=== PATIENT | female | born 1955 | race Caucasian/White ===

== ENCOUNTER 2017-06-21 15:46 | Emergency (ER) | payer BC ==
[~2017-06-21] VITALS: Ht 167.6 cm; Wt 77.1 kg
--- OUTSIDE RECORDS SUMMARY | ~2017-06-21 | XMS | Encounter Summary ---
Demographics + + + | Address | [address] | | | [place] [address] | + + + | Home Phone | | + + + | Preferred Language | Unknown | + + + | Marital Status | | + + + | Restorationism Affiliation | Unknown | + + + | Race | Unknown | + + + | Ethnic Group | Unknown | + + + Author + + + | Author | [facility] | + + + | Organization | [facility] | + + + | Address | Unknown | + + + | Phone | Unavailable | + + + Support + + + + + | Name | Relationship | Address | Phone | + + + + + | Message,Detailed | ECON | Unknown | | + + + + + | Luis,Kang | ECON | [address] | | | | | [place] | | | | | [address] | | + + + + + Care Team Providers + +------+ + | Care Cloth Shrinking Machine Operator Name | Role | Phone | + +------+ + | Renny Mclain DO | PCP | | + +------+ + Reason for Visit + + + | Reason | Comments | + + + | Medication Refill | | + + + Encounter Details +--------+--------+ + + + | Date | Type | Department | Care Team | Description | +--------+--------+ + + + | 06/10/ | Refill | [facility] | Henny Beckwith, | Rheumatoid arthritis | | 2018 | | 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 | | | | [address] | | with negative | | | | [facility] [address] | | rheumatoid factor | | | | [phone] | | (HCC) | +--------+--------+ + + + Social History + +-------+ +--------+------+ | Tobacco Use | Types | Packs/Day | Years | Date | | | | | Used | | + +-------+ +--------+------+ | Never Smoker | | | | | + +-------+ +--------+------+ + +---+---+---+ | Smokeless Tobacco: | | | | | Never Used | | | | + +---+---+---+ + + +---------+ + | Alcohol Use | Drinks/We | oz/Week | Comments | | | ek | | | + + +---------+ + | Yes | 1 | 0.6 | | | | Glasses | | | | | of wine | | | + + +---------+ + + + + | Sex Assigned at | Date Recorded | | | | + + + | Not on file | | + + + as of this encounter Plan of Treatment +--------+---------+ + + + | Date | Type | Specialty | Care Team | Description | +--------+---------+ + + + | 07/03/ | Office | Rheumatology | Gertrude, | | | 2018 | Visit | | [address] | | | | | | [facility] | | | | | | [place] [address] | | | | | | [phone] | | | | | | | | +--------+---------+ + + + as of this encounter Visit Diagnoses + + | Diagnosis | + + | Rheumatoid arthritis of multiple sites with negative rheumatoid factor (HCC) | + +"
--- OUTSIDE RECORDS SUMMARY | ~2017-06-21 | XMS | Encounter Summary ---
Demographics + + + | Address | [address] | | | [place] [address] | + + + | Home Phone | | + + + | Preferred Language | Unknown | + + + | Marital Status | | + + + | Jewish Affiliation | Unknown | + + + | Race | Unknown | + + + | Ethnic Group | Unknown | + + + Author + + + | Author | [facility] | + + + | Organization | [facility] | + + + | Address | [...] [place] | | | | | [address] | | + + + + + Care Team Providers + +------+ + | Care Cardiac Care Nurse Name | Role | Phone | + +------+ + | Renny Mclain DO | PCP | | + +------+ + Reason for Visit + + + | Reason | Comments | + + + | Rheumatology visit | | + + + | Rheumatoid Arthritis | Urgent per Triage | + + + Encounter Details +--------+---------+ + + + | Date | Type | Department | Care Team | Description | +--------+---------+ + + + | 04/23/ | Office | [facility] | Gertrude, | Rheumatoid arthritis | | 2018 | Visit | Rheumatology [address] | [place], [facility] [address] | of multiple sites | | | | [facility] | [facility] | with negative | | | | [place] [address] | [place] [address] | rheumatoid factor | | | | [phone] | [phone] | ([facility]) (Primary Dx); | | | | | | Primary | | | | | | osteoarthritis of | | | | | | both hands | +--------+---------+ + + + Social History + +-------+ [...] + + + as of this encounter Last Filed Vital Signs + + + + | Vital Sign | Reading | Time Taken | + + + + | Blood Pressure | 112/68 | 04/23/2017 8:02 AM PST | + + + + | Pulse | 72 | 04/23/2017 8:02 AM PST | + + + + | Temperature | 36.3 C (97.4 F) | 04/23/2017 8:02 AM PST | + + + + | Respiratory Rate | 16 | 04/23/2017 8:02 AM PST | + + + + | Oxygen Saturation | - | - | + + + + | Inhaled Oxygen | - | - | | Concentration | | | + + + + | Weight | 78.7 kg (173 lb 9.6 | 04/23/2017 8:02 AM PST | | | oz) | | + + + + | Height | - | - | + + + + | Body Mass Index | 28.02 | 04/23/2017 8:02 AM PST | + + + + in this encounter Instructions Patient Instructions - Ben Almendarez ARNP - 04/23/2017 8:10 AM Johnna hope that valentine ortiz have experienced exceptional care today and that you found our service to be courteous and helpful. If you have any questions you can send us a message/request using [employer] or call our o heladio at [phone]. To reach [facility] type extension [phone]. If you are unable to reach a nurse during clinic hours, please leave a detailed message. We check our messages often and return calls in a timely manner during clinic hours. Medication refills- please contact your pharmacy first Orders for labs or imaging: Please remember that Ben will only call you if something i s of concern AND needs to be addressed, otherwise results will be discussed at your next of fice visit. You can also look at your results on [employer]. If you are experiencing an emergency, please call 911 Post Injection Instructions: The injection you were given is combination of two medications, one which numbs the skin an d tissues temporarily and another which is an anti-inflammatory which works over the next se veral days to reduce swelling and inflammation. The numbing medication will wear off in the next several hours. When this happens it is not unusual to have pain in the area that was injected for about 2-5 days. If you have pain the following steps may make you more comfortable: 1. Make an ice pack and cover it with a towel. Apply this to the sore area for 10-15 minute s each hour as needed 2. Do not apply heat to the same area for at least two day. 3. If you were given a prescription for medication, take the pills as directed. 4. Regular of extra strength Tylenol can be used for mild pain 5. Avoid activities that stress the sore area. You are encouraged to gently move the arm or leg through its normal range of motion a few times per day to prevent stiffness. 6. If an shelly bandage or support was applied, continue to use it until swelling and pain are gone. After several days, when the anti-inflammatory medication starts to work, you should begin to notice a decrease in your pain and swelling. This process usually continues over the next 4-6 weeks Following any injection there is a slight possibility of developing an infection. If you de velop the following symptoms, contact the office for further instructions. Heat and redness at injection site Increasing pain and swelling Drainage or pus Feverin this encounter Progress Notes Ben Almendarez ARNP - 04/23/2017 8:10 AM PSTAssociated Order(s): ARTHROCENTESIS/IN JECTIONPost-Procedure Diagnose(s): Rheumatoid arthritis of multiple sites with negative rheu matoid factor (HCC); Primary osteoarthritis of both handsArthrocentesis/Injection Date/Time: 04/23/2017 8:10 AM Performed by: BEN ALMENDAREZ Authorized by: BEN ALMENDAREZ Verbal consent was obtained. Written consent was not obtained. Consent was given by patient . Risks, benefits and alternatives were discussed. Patient states understanding of procedur e being performed. Immediately prior to procedure a "time out" was called to verify the correct patient, proce dure, equipment, accounting support specialist and site/side marked as required. Indications Type: Therapeutic injection Location/Joint: Right small, PIP Anesthesia: surface application Gebauer's Pain Ease spray. Procedure Details Preparation: skin prepped with alcohol and skin prepped with Betadine Needle size: 27 G Difficulty: Easy Complications: No Patient tolerated the procedure well with no immediate complications. Post-procedure instructions given to patient. Therapeutic injection was given. Medication administered was Triamcinolone 10(mg). Ben Almendarez ARNP - 04/23/2017 8:10 AM PSTFormatting of this note may be differe nt from the original. Subjective: Patient ID: Barby Luis is a 62 y.o. female. Reason for visit: Rheumatoid Arthritis Here forUrgent visit Rheumatological History Patient was diagnosed in 2011 with RA. Had an initial presentation of sudden onset of PIP p ain and nodules in August. Her hands hurt her in the morning and she had a hard time opening h er fists Serology: Negative RF, Negative anti-CCP and Negative LILLY Pertinent Imagin- H/ xrays- neg. 2014 MRI- L 5th finger- mild edema- neg.erosions HPI Last visit: 01/03/17 Changes in overall health since last visit: no Main Concern: urgent visit for R 5th PIP joint pain and swelling. Symptoms began March. No injury or trauma. This has been an intermittent issue for the last few years. She has had this joint injected about 3 times in the past, and it has been effective for relief. She re quests another injection today. Had similar issues with the L 5th finger and the PIP joint was eventually fused. Location:R 5th finger, PIP Quality: ache Severity: moderate Duration: 1-3 months Timing:intermittent Aggravated by:activity Relieved by:rest Denies infection fever and abdominal pain Current medications: Plaquenil 400mg daily Previous Medications tried and failed:oral prednisone- GI/ ARPAN, MTX - hair loss, sulfasalaz ine- GI The following portions of the patient's history were reviewed and updated as appropriate an d is available elsewhere in the record: allergies, current medications, past family history, past social history, past surgical history and problem list. Past Medical History Diagnosis Date Cataract Depression Osteoarthritis Rheumatoid arthritis(714.0) Possible Review of Systems Constitutional: Negative for fatigue and fever. HENT: Negative for mouth sores and sore throat. Eyes: Negative for pain and redness. Respiratory: Negative for cough and shortness of breath. Cardiovascular: Negative for chest pain. Gastrointestinal: Positive for abdominal pain. Negative for blood in stool. Genitourinary: Negative for dysuria and hematuria. Musculoskeletal: Positive for arthralgias and joint swelling. Skin: Negative for rash. Allergic/Immunologic: Positive for environmental allergies. Neurological: Positive for headaches. Negative for numbness. Psychiatric/Behavioral: The patient is not nervous/anxious. IBen, reviewed the above ROS. Objective: Physical Exam Constitutional: She is oriented to person, place, and time. She appears well-developed and well-nourished. HENT: Head: Normocephalic. Mouth/Throat: Oropharynx is clear and moist. Eyes: Conjunctivae are normal. Pupils are equal, round, and reactive to light. Neck: Normal range of motion. Neck supple. Cardiovascular: Normal rate, regular rhythm and normal heart sounds. Pulmonary/Chest: Effort normal and breath sounds normal. Musculoskeletal: Normal range of motion. Musculoskeletal examination of the RIGHT and LEFT upper extremity, RIGHT and LEFT lower ext remity, spine, ribs ,pelvis ,head and neck was performed Musculoskeletal examination reveals no synovitis with no tenderness,soft tissue swelling or instability in all the joints, except synovitis and tenderness to R 5th PIP joint. All oth er joints are satisfactory Musculoskeletal examination reveals degenerative changes in the hands Neurological: She is alert and oriented to person, place, and time. Skin: Skin is warm, dry and intact. Joint Exam Labs reviewed in Epic 01/03/17 06/07/16 eye exam X-rays R Hand- April 2016 1. Periarticular deossification, suggesting inflammatory arthritis. 2. Mild chondromalacia in some interphalangeal and MCP joints. 3. The remainder of the examination is unremarkable. Reviewed chart notes, labs and imaging form other provider(s) since the last visit. Assessment and Plan: Visit Diagnoses and Associated Orders: Rheumatoid arthritis of multiple sites with negative rheumatoid factor (HCC) R 5th PIP joint pain with swelling. Treatment options discussed, consent given for intra-articular injection of Kenalog Instructed on post injection care and if no improvement in 7-10 days, contact our office. If symptoms persist, consider consultation with hand surgeon or she may consider [facility], as she is hesitant to fuse the R 5th digit. Return to clinic in June Risks and benefits of a treatment plan were explained to patient. Patient will follow up with their primary care physician in regards to non-rheumatological symptoms listed under review of systems. Patient was advised to contact our office if there are any change in their symptoms. . Answers for HPI/ROS submitted by the patient on 04/23/2017 Joint problem FN subscore: : 0.66 Patient overall Assessment: 5 RAPID3 Score: : 9.16 in this encounter Plan of Treatment +--------+---------+ + + + | Date | Type | Specialty | Care Team | Description | +--------+---------+ + + + | 07/03/ | Office | Rheumatology | Gertrude, | | | 2017 | Visit | | [address] | | | | | | [facility] | | | | | | [place] [address] | | | | | | [phone] | | | | | | | | +--------+---------+ + + + as of this encounter Procedures + +--------+ + + + | Procedure Name | Priori | Date/Time | Associated Diagnosis | Comments | | | ty | | | | + +--------+ + + + | ARTHROCENTESIS/INJEC | Routin | 04/23/2017 | Rheumatoid | Results for this | | TION | e | 8:10 AM | arthritis of | procedure are in the | | | | PST | multiple sites with | results section. | | | | | negative rheumatoid | | | | | | factor (HCC) | | | | | | Primary | | | | | | osteoarthritis of | | | | | | both hands | | + +--------+ + + + in this encounter Results Arthrocentesis/Injection (04/23/2017 8:10 AM) + + | Narrative | + + | YOSEPH Novoa 04/23/2017 8:53 AM Arthrocentesis/Injection | | Date/Time: 04/23/2017 8:10 AM Performed by: BEN ALMENDAREZ Authorized by: | | BEN ALMENDAREZ Verbal consent was obtained. Written consent was not | | obtained. Consent was given by patient. Risks, benefits and alternatives were | | discussed. Patient states understanding of procedure being performed. Immediately | | prior to procedure a "time out" was called to verify the correct patient, procedure, | | equipment, accounting support specialist and site/side marked as required. Indications | | Type: Therapeutic injection Location/Joint: Right small, PIP Anesthesia: | | surface application Gebauer's Pain Ease spray. Procedure Details | | Preparation: skin prepped with alcohol and skin prepped with Betadine Needle | | size: 27 G Difficulty: Easy Complications: No Patient tolerated the | | procedure well with no immediate complications. Post-procedure instructions given to | | patient. Therapeutic injection was given. Medication administered was | | Triamcinolone 10(mg). | + + in this encounter Visit Diagnoses + + | Diagnosis | + + | Rheumatoid arthritis of multiple sites with negative rheumatoid factor (HCC) - Primary | + + | Primary osteoarthritis of both hands | + + Administered Medications + +--------+ +-------+------+------+ | Medication Order | MAR | Action | Dose | Rate | Site | | | Action | Date | | | | + +--------+ +-------+------+------+ | triamcinolone acetonide | Given | | 10 mg | | | | (KENALOG-40) injection 10 mg 10 | | 8 08:28 | | | | | mg, Intra-articular, Once, Tue | | PST | | | | | 04/23/17 at 0900, For 1 dose | | | | | | + +--------+ +-------+------+------+ +---+---+ | | | +---+---+ in this encounter
--- OUTSIDE RECORDS SUMMARY | ~2017-06-21 | XMS | Clinical Summary ---
Demographics + + + | Address | [address] [place] [address] | | | [place] [address] | + + + | Home Phone | | + + + | Preferred Language | Unknown | + + + | Marital Status | | + + + | Congregation Affiliation | OTH | + + + | Race | White | + + + | Ethnic Group | Not or | + + + Author + + + | Organization | Unknown | + + + | Address | Unknown | + + + | Phone | Unavailable | + + + Support + + + + + | Name | Relationship | Address | Phone | + + + + + | JARET PINO | ECON | [address] | | | | [place] | | | | | [address] | | + + + + + Care Team Providers + +------+ + | Care Copyist Name | Role | Phone | + +------+ + PP | Unavailable | + +------+ + Source Comments IAN is fully live on both [facility] and [facility] Allergies No Known Allergies Current Medications Not on file Active Problems Not on file Social History + +-------+ +--------+------+ | Tobacco Use | Types | Packs/Day | Years | Date | | | | | Used | | + +-------+ +--------+------+ | Never Assessed | | | | | + +-------+ +--------+------+ + + + | Sex Assigned at | Date Recorded | | | | + + + | Not on file | | + + + Plan of Treatment + + + + + | Health Maintenance | Due Date | Last Done | Comments | + + + + + | INFLUENZA VACCINE | | | | | (FLU SHOT) | 8 | | | + + + + + Results Not on filefrom Last 3 Months"
--- OUTSIDE RECORDS SUMMARY | ~2017-06-21 | XMS | Clinical Summary ---
Demographics + + + | Address | [address] | | | [place] [address] | + + + | Home Phone | | + + + | Preferred Language | Unknown | + + + | Marital Status | | + + + | Zoroastrian Affiliation | Unknown | + + + | Race | Unknown | + + + | Ethnic Group | Unknown | + + + Author + + + | Author | [facility] | + + + | Organization | [facility] | + + + | Address | [...] [place] | | | | | [address] | | + + + + + Care Team Providers + +------+ + | Care Customer Energy Specialist Name | Role | Phone | + +------+ + | Renny Mclain DO | PP | | + +------+ + Allergies + + + + + + | Active Allergy | Reactions | Severity | Noted | Comments | | | | | Date | | + + + + + + | Cyanocobalamin | Mental Changes | Low | 11/04/19 | Irritability and | | | | | 15 | anger | + + + + + + | Fluticasone | Swelling | Medium | 11/21/19 | | | | | | 16 | | + + + + + + | Other | Other (See Comments) | Medium | 10/23/19 | Bleach | | | | | 12 | | + + + + + + | Penicillins | Swelling, Rash | Medium | 10/23/19 | | | | | | 12 | | + + + + + + | Prednisone | Swelling | Medium | 11/04/19 | Swelling and joint | | | | | 15 | pain | + + + + + + | Adhesive Tape | Other (See Comments) | Medium | 10/23/19 | Pt is very | | | | | 12 | sensitive to the | | | | | | medical tape used. | + + + + + + | Topiramate | Other (See Comments) | Medium | 01/04/20 | Mild. | | | | | 17 | | + + + + + + Current Medications + + +--------+---------+------+------+-------+ | Prescription | Sig. | Disp. | Refills | Star | End | Statu | | | | | | t | Date | s | | | | | | Date | | | + + +--------+---------+------+------+-------+ | | Take 1 tablet by | | | | | Activ | | HYDROcodone-acetamin | mouth every 6 (six) | | | | | e | | ophen (LORTAB) | hours as needed for | | | | | | | 7.5-500 MG per | Pain. | | | | | | | tablet | | | | | | | + + +--------+---------+------+------+-------+ | FLUoxetine HCl | Take 60 mg by mouth. | | | | | Activ | | (PROZAC PO) | | | | | | e | + + +--------+---------+------+------+-------+ | Vitamin D, | Take by mouth | | | | | Activ | | Cholecalciferol, | daily. | | | | | e | | 1000 UNITS TABS | | | | | | | + + +--------+---------+------+------+-------+ | tiZANidine | Take 1 tablet by | 30 | 3 | 06/0 | | Activ | | (ZANAFLEX) 4 MG | mouth nightly as | tablet | | 1/20 | | e | | tablet | needed. | | | 16 | | | + + +--------+---------+------+------+-------+ | Calcium Carbonate | Take 2 tablets by | | | | | Activ | | 500 MG CHEW | mouth daily. | | | | | e | + + +--------+---------+------+------+-------+ | FLUoxetine | Take 20 mg by mouth | | | 02/1 | | Activ | | (PROZAC) 20 MG | 3 (three) times | | | 2/20 | | e | | capsule | daily. | | | 17 | | | + + +--------+---------+------+------+-------+ | conjugated | Place 1 g vaginally | | | | | Activ | | estrogens (PREMARIN) | daily. | | | | | e | | vaginal | | | | | | | | creamIndications: I | | | | | | | | gram twice a week, | | | | | | | + + +--------+---------+------+------+-------+ | hydroxychloroquine | Take 1 tablet by | 180 | 1 | 04/1 | | Activ | | (PLAQUENIL) 200 MG | mouth 2 (two) times | tablet | | 6/20 | | e | | tabletIndications: | daily. | | | 18 | | | | Rheumatoid arthritis | | | | | | | | of multiple sites | | | | | | | | with negative | | | | | | | | rheumatoid factor | | | | | | | | ([facility]) | | | | | | | + + +--------+---------+------+------+-------+ | hydroxychloroquine | Take 1 tablet by | 180 | 1 | 06/0 | 04/1 | Disco | | (PLAQUENIL) 200 MG | mouth 2 (two) times | tablet | | /20 | 6/20 | ntinu | | tabletIndications: | daily. | | | 17 | 18 | ed | | Rheumatoid arthritis | | | | | | | | of multiple sites | | | | | | | | with negative | | | | | | | | rheumatoid factor | | | | | | | | ([facility]) | | | | | | | + + +--------+---------+------+------+-------+ + + +-------+ +------+------+-------+ | Hospital, Clinic, or | Ordered | Route | Frequency | Star | End | Statu | | Other Facility | Dose | | | t | Date | s | | Administered | | | | Date | | | | Medication | | | | | | | + + +-------+ +------+------+-------+ | botulinum toxin | 100 Units | IM | Every 3 Months | 02/26 | | Activ | | type A (BOTOX) | | | | 09/13 | | e | | injection 100 | | | | 16 | | | | UnitsIndications: | | | | | | | | Intractable chronic | | | | | | | | migraine without | | | | | | | | aura and without | | | | | | | | status migrainosus | | | | | | | + + +-------+ +------+------+-------+ Active Problems + + + | Problem | Noted Date | + + + | Primary osteoarthritis of both hands | 01/03/2017 | + + + + + | Last Assessment & Plan: Stable, continue conservative | | measures. | + + + + + | Rheumatoid arthritis of multiple sites with negative rheumatoid | 09/06/2015 | | factor (HCC) | | + + + + + | Last Assessment & Plan: R 5th PIP joint pain with | | swelling.Treatment options discussed, consent given for | | intra-articular injection of KenalogInstructed on post injection | | care and if no improvement in 7-10 days, contact our office.If | | symptoms persist, consider consultation with hand surgeon or she | | may consider [facility] consult, as she is hesitant to fuse the R 5th | | digit.Return to clinic in June | + + + + + | Chronic pain | 11/30/2014 | + + + | Chronic daily headache | 11/03/2014 | + + + + + | Last Assessment & Plan: This patient has had chronic | | headaches for 40 years. She states that her headaches have | | progressively gotten more severe and more constant over the | | years. Recently they have gotten so severe that she is been | | missing work frequently. This is new. The patient's headaches are | | primarily in the frontal region additionally between the eyes | | and then spread to the retrobulbar lumbar headaches. She denies | | any aura she does not have photophobia although she does have | | some phonophobia and sensitivity to smell. She also denies | | significant nausea and vomiting. The patient has tried many many | | medications over the years including ergotamine injections, | | gabapentin, nonsteroidal anti-inflammatory medications and | | narcotics. Many other antiepileptic Migraine medications have | | been tried without prolonged were consistent success. The patient | | has had TMJ surgery on the left side but not the right. This did | | not relieve her headaches either. In the past there seems to | | have been a seasonal component with her headaches being most | | severe in the springtime but this year she has had prolonged | | periods of headaches throughout the summer as well.With the fact | | that her headaches are migrainous in quality with a retro-bulbar | | severe component and the fact that she has failed conservative | | therapy she is a candidate for left and right sphenopalatine | | ganglion blocks. Plan alternatives risks and potential benefits | | of this procedure were explained in great detail. The patient | | understands that there is no guarantee this will provide benefit. | | There also understand that if it does provide benefit there is | | no guarantee how long it will last. He also understand that it | | does provide benefit there is a good possibility that repeat | | procedures would need to be performed in order to get longer | | lasting relief. I also understand that there are risks of the | | procedure itself which include but are not limited to nose bleed, | | nausea, vomiting, increased headaches or pain, dizziness, | | transient difficulty swallowing and numbness of the throat. The | | patient wishes to proceed. 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 | | | | | | with negative | | | | | | rheumatoid factor | | | | | | (HCC) | +--------+ + + + + | 04/23/ | Office | | Gertrude, | Rheumatoid arthritis | | 2017 | Visit | | [place] | of multiple sites | | | | | | with negative | | | | | | rheumatoid factor | | | | | | (HCC) (Primary Dx); | | | | | | Primary | | | | | | osteoarthritis of | | | | | | both hands | +--------+ + + + + | 04/17/ | Telephone | | Rafaela Franklin, | | | 2017 | | | RN | | +--------+ + + + + from Last 3 Months Family History + + +------+ + | Medical History | Relation | Name | Comments | + + +------+ + | Other (see comments) | Father | | Pluerosy | + + +------+ + | Other (see comments) | Maternal | | | | | Grandfath | | | | | er | | | + + +------+ + | Other (see comments) | Maternal | | Gout | | | Grandmoth | | | | | er | | | + + +------+ + | Arthritis | Mother | | | + + +------+ + | Other (see comments) | Mother | | Low blood pressure | + + +------+ + | Glaucoma | Paternal | | | | | Grandmoth | | | | | er | | | + + +------+ + | Skin cancer | Paternal | | | | | Grandmoth | | | | | er | | | + + +------+ + + +------+--------+ + | Relation | Name | Status | Comments | + +------+--------+ + | Father | | | | + +------+--------+ + | Maternal Grandfather | | | | + +------+--------+ + | Maternal Grandmother | | | | + +------+--------+ + | Mother | | | | + +------+--------+ + | Paternal Grandmother | | | | + +------+--------+ + Social History + +-------+ +--------+------+ | [...] on file | | + + + Last Filed Vital Signs + + + [...] + + + | Oxygen Saturation | 96% | 11/30/2014 1:31 PM PDT | + + + + | Inhaled Oxygen | - | - | | Concentration | | | + + + + | Weight | 78.7 kg (173 lb 9.6 | 04/23/2017 8:02 AM PST | | | oz) | | + + + + | Height | 167.6 cm (5' 6") | 01/03/2017 8:53 AM PST | + + + + | Body Mass Index | 28.02 | 04/23/2017 8:02 AM PST | + + + + Plan of Treatment +--------+---------+ + + + | Date | Type | Specialty | Care Team | Description | +--------+---------+ + + + | 07/03/ | Office | | Gertrude, | | | 2018 | Visit | | [address] | | | | | | [facility] | | | | | | [place] [address] | | | | | | [phone] | | | | | | | | +--------+---------+ + + + + + + + + | Health Maintenance | Due Date | Last Done | Comments | + + + + + | Vaccine: | | | | | Dtap/Tdap/Td (1 - | 7 | | | | Tdap) | | | | + + + + + | Cervical Cancer | | | | | Screening (Pap) | 9 | | | + + + + + | Breast Cancer | | | | | Screening | 8 | | | | (Mammogram) | | | | + + + + + | Colon Cancer | | | | | Screening | 8 | | | | (Colonoscopy) | | | | + + + + + | Vaccine: Influenza | | | | | (Season Ended) | 8 | | | + + + + + Procedures + +--------+ + + + | [...] | | + +--------+ + + + from Last 3 Months Results Arthrocentesis/Injection (04/23/2017 8:10 AM) + + [...] the correct patient, procedure, | | equipment, support analyst and site/side marked as required. Indications | [...] | | Triamcinolone 10(mg). | + + from Last 3 Months Insurance +---------+--------+ +------+-------+ + | Payer | Benefi | Subscriber | Type | Phone | Address | | | t Plan | ID | | | | | | / | | | | | | | Group | | | | | +---------+--------+ +------+-------+ + | PREMERA | PREMER | [phone] | | | [address] [address] | | | A BLUE | | | | [place] | | | [place] | | | | [address] | | | FED | | | | | | | PPO | | | | | +---------+--------+ +------+-------+ + + +--------+ +--------+ + + | Guarantor Name | Accoun | Relation to | Date | Phone | Billing Address | | | t Type | Patient | of | | | | | | | | | | + +--------+ +--------+ + + | LOKI LUIS | Person | Self | [birth year] | Work: | [address] | | | [address] | | 1955 | [phone] | [place] | | | elizabeth | | | [address]: | [address] | | | | | | | | | | | | | [phone] | | | | | | | [phone] | | + +--------+ +--------+ + +
--- OUTSIDE RECORDS SUMMARY | ~2017-06-21 | XMS | Clinical Summary ---
Demographics + + + | Address | [address] | | | [place] [address] | + + + | Home Phone | | + + + | Preferred Language | Unknown | + + + | Marital Status | | + + + | Jewish Affiliation | Unknown | + + + | Race | Unknown | + + + | Ethnic Group | Unknown | + + + Author + + + | Author | [facility] | + + + | Organization | [facility] | + + + | Address | [...] [place] | | | | | [address] | | + + + + + Care Team Providers + +------+ + | Care Tattoo Designer Name | Role | Phone | + [...] | | | | | | | ([facility]) | | | | | | | [...] | | | | | | | ([facility]) | | | | | | | [...] arthritis | | 2017 | | | 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 [...] | xxxxxxxxx | | | [address] [address] | | | A BLUE | | | | [place] | | | [place] | | | | [address] | | | FED | | | [...] | | elijah/Gurjit | | 1955 | [phone] | [place] | | | elizabeth | | | [address]: | [address] | | | | | | | | | | | | | [phone] | | | | | | | [phone] | | + +--------+ +--------+ + +
--- OUTSIDE RECORDS SUMMARY | ~2017-06-21 | XMS | Encounter Summary ---
Demographics + + + | Address | [address] | | | [place] [address] | + + + | Home Phone | | + + + | Preferred Language | Unknown | + + + | Marital Status | | + + + | Jew Affiliation | Unknown | + + + | Race | Unknown | + + + | Ethnic Group | Unknown | + + + Author + + + | Author | [facility] | + + + | Organization | [facility] | + + + | Address | [...] [place] | | | | | [address] | | + + + + + Care Team Providers + +------+ + | Care Incinerator Plant Supervisor Name | Role | Phone | + [...] + + | 06/10/ | Refill | [facility] | Henny Beckwith, | Rheumatoid arthritis | | 2018 | | 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
--- OUTSIDE RECORDS SUMMARY | ~2017-06-21 | XMS | Encounter Summary ---
Demographics + + + | Address | [address] | | | [place] [address] | + + + | Home Phone | | + + + | Preferred Language | Unknown | + + + | Marital Status | | + + + | Amish Affiliation | Unknown | + + + | Race | Unknown | + + + | Ethnic Group | Unknown | + + + Author + + + | Author | [facility] | + + + | Organization | [facility] | + + + | Address | [...] [place] | | | | | [address] | | + + + + + Care Team Providers + +------+ + | Care Apprentice Plumber Name | Role | Phone | + +------+ + | Renny Mclain DO | PCP | | + +------+ + Encounter Details +--------+ + + + + | Date | Type | Department | Care Team | Description | +--------+ + + + + | 04/17/ | Telephone | [facility] | Rafaela Franklin, | | | 2018 | | Rheumatology | RN | | | | | Infusion [address] | | | | | | [address] | | | | | | [place] [address] | | | | | | [phone] | | | +--------+ + + + + Social History + +-------+ [...] 2018 | Visit | | [address] | | | | | | [facility] | | | | | | [place] [address] | | | | | | [phone] | | | | | | | | +--------+---------+ + + + as of this encounter Visit Diagnoses Not on filein this encounter"
--- OUTSIDE RECORDS SUMMARY | ~2017-06-21 | XMS | Clinical Summary ---
Demographics + + + | Address | [address] [place] [address] | | | [place] [address] | + + + | Home Phone | | + + + | Preferred Language | Unknown | + + + | Marital Status | | + + + | Mandaen Affiliation | 1008 | + + + | Race | Unknown | + + + | Ethnic Group | Unknown | + + + Author + + + | Author | [facility] | | | and [place] | + + + | Organization | [facility] | | | and [place] | + + + | Address | Unknown | + + + | Phone | Unavailable | + + + Support + + +---------+ + | Name | Relationship | Address | Phone | + + +---------+ + | JARET LUIS | ECON | Unknown | | + + +---------+ + Care Team Providers + +------+ + | Care Top Carrier Name | Role | Phone | + +------+ + PP | Unavailable | + +------+ + Allergies Not on File Current Medications Not on file Active Problems [...] | + + + + + | Hepatitis C | | | | | Screening | 8 | | | + + + + + | Vaccine: | | | | | Dtap/Tdap/Td (1 - | 7 | | | | Tdap) | | | | + + + + + | CERVICAL CANCER | | | | | SCREENING (PAP EVERY | 9 | | | | 3 YEARS 21-64 ) | | | | + + + + + | BREAST CANCER | | | | | SCREENING (MAMM Q2 | 8 | | | | YEARS 50-74) | | | | + + + + + | COLON CANCER | | | | | SCREENING | 8 | | | | (COLONOSCOPY EVERY | | | | | 10 YEARS 50-75) | | | | + + + + + | Vaccine: Influenza | | | | | (Season Ended) | 8 | | | + + + + + Results Not on filefrom Last 3 Months"
--- OUTSIDE RECORDS SUMMARY | ~2017-06-21 | XMS | Encounter Summary ---
Demographics + + + | Address | [address] | | | [place] [address] | + + + | Home Phone | | + + + | Preferred Language | Unknown | + + + | Marital Status | | + + + | Rastafari Affiliation | Unknown | + + + | Race | Unknown | + + + | Ethnic Group | Unknown | + + + Author + + + | Author | [facility] | + + + | Organization | [facility] | + + + | Address | [...] [place] | | | | | [address] | | + + + + + Care Team Providers + +------+ + | Care Manager Technical Training Name | Role | Phone | + +------+ + | Renny Mclain DO | PCP | | + +------+ + Encounter Details +--------+ + + + + | Date | Type | Department | Care Team | Description | +--------+ + + + + | 04/17/ | Telephone | [facility] | Rafaela Franklin, | | | 2018 | | Rheumatology | RN | | | | | Infusion [address] | | | | | | [address] | | | | | | [place] [address] | | | | | | [phone] | | | +--------+ + + + [...] 2018 | Visit | | [address] | | | | | | [facility] | | | | | | [place] [address] | | | | | | [phone] | | | | | | | | +--------+---------+ + + + as of this encounter Visit Diagnoses Not on filein this encounter"
--- OUTSIDE RECORDS SUMMARY | ~2017-06-21 | XMS | Clinical Summary ---
Demographics + + + | Address | [address] [place] [address] | | | [place] [address] | + + + | Home Phone | | + + + | Preferred Language | Unknown | + + + | Marital Status | | + + + | Episcopalian Affiliation | OTH | + + + [...] [place] | | | | | [address] | | + + + + + Care Team Providers + +------+ + | Care Training And Quality Manager Name | Role | Phone | + +------+ + PP | Unavailable | + +------+ + Source Comments IAN is fully live on both [facility] and [facility] InPatient.[facility] Allergies No Known Allergies Current Medications Not [...]
--- OUTSIDE RECORDS SUMMARY | ~2017-06-21 | XMS | Clinical Summary ---
Demographics + + + | Address | [address] [place] [address] | | | [place] [address] | + + + | Home Phone | | + + + | Preferred Language | Unknown | + + + | Marital Status | | + + + | Yazdanism Affiliation | 1008 | + + + | Race | Unknown | + + + | Ethnic Group | Unknown | + + + Author + + + | Author | [facility] | | | and [place] | + + + | Organization | [facility] | | | and [place] | [...] Team Providers + +------+ + | Care Automobile Service Station Mechanic Name | Role | Phone | + [...]
--- OUTSIDE RECORDS SUMMARY | ~2017-06-21 | XMS | Encounter Summary ---
Demographics + + + | Address | [address] | | | [place] [address] | + + + | Home Phone | | + + + | Preferred Language | Unknown | + + + | Marital Status | | + + + | Yarsanism Affiliation | Unknown | + + + | Race | Unknown | + + + | Ethnic Group | Unknown | + + + Author + + + | Author | [facility] | + + + | Organization | [facility] | + + + | Address | [...] [place] | | | | | [address] | | + + + + + Care Team Providers + +------+ + | Care Contract Management Specialist Name | Role | Phone | [...] + + | 04/23/ | Office | [facility] | Gertrude, | Rheumatoid arthritis | | 2018 | Visit | Rheumatology [address] | [place], [facility] [address] | of multiple sites | | | | [facility] | [facility] | with negative | | | | [place] [address] | [place] [address] | rheumatoid factor | | | | [phone] | [phone] | ([facility]) (Primary Dx); | | | | | [...] you can send us a message/request using WEEZEVENT or call our o heladio at [phone]. To reach Henny CABALLEROShea type extension [phone]. If you are unable to reach a [...] can also look at your results on Ekotrope. If you are experiencing an emergency, please [...] verify the correct patient, proce dure, equipment, account support rep and site/side marked as required. Indications Type: [...] [address] | | | | | | [facility] | | | | | | [place] [address] | | | | | | [phone] | | | | | | | [...] the correct patient, procedure, | | equipment, account support rep and site/side marked as required. Indications | [...]
[~2017-06-21 15:46] MED LIST: ALENDRONATE SOD70 MG PO; CYCLOBENZAPRINE5 MG PO; HYDROXYCHLOROQ200 MG PO; LYRICA75 MG PO; NAPROXEN500 MG PO; NORCO 5-325 TA1 EACH PO; PROZAC20 MG PO; VICODIN 5-3001 EACH PO; ZANAFLEX2 M1 PO
[2017-06-21] MEDS ORDERED: IBU600 MG PO (16:25)
[2017-06-21] MEDS ORDERED: COLACE 2-IN-11 EACH PO (16:26)
[2017-06-21] MEDS ORDERED: CALCIUM 1,0001 EACH PO (16:27)
[2017-06-21] MEDS ORDERED: PREMARIN30 GM PV (16:27)
[2017-06-21] MEDS ORDERED: VICODIN ES 7.51 EAC1 PO (16:28)
[2017-06-21] MEDS ORDERED: PLAQUENIL200 MG PO (16:28)
[2017-06-21] MEDS ORDERED: ZOFRAN ODT4 MG PO (19:05)
== END 2017-06-21 19:30 | disposition home or self-care (01) ==
LOC: ED 15:46
PROC: 0T9B70Z Drainage of Bladder with Drainage Device, Via Natural or Artificial Opening (ICD-10-PCS; principal; 2017-06-21)
DX: K95.09 Other complications of gastric band procedure (principal); Z88.8 Allergy status to other drugs, medicaments and biological substances; Z88.0 Allergy status to penicillin; Z88.2 Allergy status to sulfonamides; Z79.899 Other long term (current) drug therapy
CPT/HCPCS: 51701; 74177; 80053; 81001; 82150; 83690; 85025; 96361; 96374; 96375; 99284; J1170; J2405; J7030; Q9967

== ENCOUNTER 2017-08-22 06:30 | Day surgery (SDC) | payer BC ==
[~2017-08-22] VITALS: Ht 167.6 cm; Wt 76.7 kg
[~2017-08-22 06:30] MED LIST changes: +CALCIUM 1,0001 EACH PO; +COLACE 2-IN-11 EACH PO; +IBU600 MG PO; +PLAQUENIL200 MG PO; +PREMARIN30 GM PV; +VICODIN ES 7.51 EAC1 PO; +ZOFRAN ODT4 MG PO
--- NOTE | 2017-08-22 08:10 | NUR ---
08/22/17 0810 Trena Grewal 0804 PT ARRIVED IN PACU SLEEPY WITH NO C/O'S. ABD SOFT.
--- NOTE | 2017-08-22 08:45 | OR ---
[facility] [address], [place] [address] Signed DATE OF OPERATION: 08/22/2017 SURGEON: Melissa Stone MD PREOPERATIVE DIAGNOSES: 1. Screening. 2. Chronic constipation and diarrhea. 3. Anal sphincter, muscle/nerve stimulator. POSTOPERATIVE DIAGNOSES: 1. A 5 mm sessile polyp, distal right colon. 2. Internal anal skin tags. PROCEDURE: Colonoscopy with hot biopsy. ESTIMATED BLOOD LOSS: None. INDICATIONS: Loki is a 62-year-old female, who was asked to see me for followup colonoscopy. She has had a number of different pelvic surgeries including her sacrocolpopexy as well as a nerve stimulator for her anal sphincter muscles. She also suffers with chronic constipation and alternating diarrhea. She tells me there is no family history of colon cancer or polyps. In the office, I gave her a pamphlet on colonoscopy and we looked at that together along with the risks including, but not limited to gas bloating, crampy abdominal pain, bleeding, perforation, requiring surgery, and missed diagnosis. We also discussed the need for IV conscious sedation. She had expressed understanding and wished to proceed. PROCEDURE NOTE: Loki was taken into our endoscopy suite and placed in the left lateral decubitus position. She was given a preoperative antibiotic. She was then given 9 mg of Versed and 150 mcg of fentanyl to cover the case. A digital rectal exam was performed and this was unremarkable. She had deactivated her nerve stimulator. Consequently, there was a little anal sphincter tone. The adult colonoscope was then introduced and advanced all around into the cecum under direct visualization of the camera. It took some extra sedation and abdominal compression to advance the scope up out of the pelvis through the sigmoid colon. Even then it was dragging back in the pelvis. We went slowly and used copious amounts of lubrication. We eventually made it to the cecum itself. Her prep Electronically Signed By: MELISSA STONE MD 08/22/17 0845 PATIENT NAME: LOKI PINO OPERATIVE REPORT DATE OF : 59 REPORT #: [id number] PHYSICIAN: MELISSA STONE MD PCP: RENNY ERIC DO REPORT IS CONFIDENTIAL AND NOT TO BE RELEASED WITHOUT AUTHORIZATION [facility] [address], [place] [address] Signed was quite good. We had taken pictures throughout for photodocumentation. The scope was then slowly withdrawn. We found a polyp in the distal right colon and removed completely with hot biopsy forceps. Once back in the rectum, the scope had been retroflexed. She has some tiny internal anal skin tags. After this, the gas was suctioned out and the colonoscope removed. Loki tolerated the procedure quite well. RECOMMENDATIONS: I will see Loki back in my office in 7 to 14 days to review her results. MD ONDINA Edgar/RONEYL /[id number] cc: MD Renny Cornejo DO Andrew L Bower, MD Dr. Rebecca Batalden Copies: KINJAL COMER MD, FRANK E DO BOWER, ANDREW L MD ~ Electronically Signed By: MELISSA STONE MD 08/22/17 0845 PATIENT NAME: LOKI PINO OPERATIVE REPORT DATE OF : 59 REPORT #: [id number] PHYSICIAN: MELISSA STONE MD PCP: RENNY ERIC DO REPORT IS CONFIDENTIAL AND NOT TO BE RELEASED WITHOUT AUTHORIZATION
== END 2017-08-22 08:40 | disposition home or self-care (01) ==
LOC: OPS 06:30 → DS 06:30 → OPS 06:45 → DS 07:30 → OPS 08:40
PROVIDERS: Colon & Rectal Surgery
PROC: 0DBK8ZZ Excision of Ascending Colon, Via Natural or Artificial Opening Endoscopic (ICD-10-PCS; principal; 2017-08-22 06:45)
DX: D12.2 Benign neoplasm of ascending colon (principal); K52.9 Noninfective gastroenteritis and colitis, unspecified; M81.0 Age-related osteoporosis without current pathological fracture; M19.90 Unspecified osteoarthritis, unspecified site; F32.9 Major depressive disorder, single episode, unspecified; Z98.890 Other specified postprocedural states; Z88.0 Allergy status to penicillin; Z88.5 Allergy status to narcotic agent; Z88.8 Allergy status to other drugs, medicaments and biological substances; Z91.048 Other nonmedicinal substance allergy status; Z79.899 Other long term (current) drug therapy
CPT/HCPCS: 99153; G0500; J2250; J3010; J7120

== ENCOUNTER 2020-05-25 18:35 | Emergency (ER) | payer BC ==
[~2020-05-25] VITALS: Ht 167.6 cm; Wt 76.7 kg
[2020-05-25] MEDS ORDERED: HYDROCODON-ACE1 EA10 PO (23:00)
[2020-05-25] MEDS ORDERED: STOOL SOFTENER250 MG PO (23:00)
== END 2020-05-25 23:30 | disposition home or self-care (01) ==
LOC: ED 18:35
DX: S80.811A Abrasion, right lower leg, initial encounter (principal); M79.671 Pain in right foot; M79.672 Pain in left foot; W10.9XXA Fall (on) (from) unspecified stairs and steps, initial encounter; Z88.0 Allergy status to penicillin; Z88.8 Allergy status to other drugs, medicaments and biological substances; Z88.2 Allergy status to sulfonamides; Z79.899 Other long term (current) drug therapy
CPT/HCPCS: 72170; 73630; 90471; 90714; 99283-25

== ENCOUNTER 2022-07-03 07:34 | Emergency (ER) | payer MEDICARE, OTHER ==
[~2022-07-03] VITALS: Ht 167.6 cm; Wt 86.2 kg
[~2022-07-03 07:34] MED LIST changes: +HYDROCODON-ACE1 EA10 PO; +STOOL SOFTENER250 MG PO
[2022-07-03] MEDS ORDERED: GABAPENTIN300 MG PO (07:47)
[2022-07-03 09:05] VITALS: BP 105/60
--- NOTE | 2022-07-03 19:33 | EKG ---
[facility] [address] [facility] [place], [place] [address] Signed Sinus bradycardia Otherwise normal ECG No previous ECGs available Confirmed by AMAURI RONDON MD ([id number]) on 07/03/2022 7:33:42 PM Electronically Signed By: AMAURI RONDON MD 07/03/221932 PATIENT NAME: LOKI PINO Electrocardiogram DATE OF : 59 PHYSICIAN: AMAURI RONDON MD REPORT #: [id number] REPORT IS CONFIDENTIAL AND NOT TO BE RELEASED WITHOUT AUTHORIZATION
== END 2022-07-03 09:05 | disposition home or self-care (01) ==
LOC: ED 07:34
DX: J40 Bronchitis, not specified as acute or chronic (principal); R55 Syncope and collapse; Z88.0 Allergy status to penicillin; Z88.8 Allergy status to other drugs, medicaments and biological substances; Z88.2 Allergy status to sulfonamides; Z88.5 Allergy status to narcotic agent; Z79.899 Other long term (current) drug therapy
CPT/HCPCS: 36415; 71046; 80053; 85025; 87502; 93005; 93010; 99284-25; C9803; U0003

== ENCOUNTER 2024-01-02 06:55 | Day surgery (SDC) | payer MEDICARE, OTHER ==
[2023-12-25 09:24] VITALS: BP 107/69
[~2024-01-02] VITALS: Ht 167.6 cm; Wt 80.5 kg
[~2024-01-02 06:55] MED LIST changes: +GABAPENTIN300 MG PO; +MIDAZOLAM HCL 5 MG/5 ML VIAL IV PRN; +PHENTERMINE HCL15 MG PO; +fentaNYL citrate 100 MCG/2 ML VIAL IV PRN; +propofoL 200 MG/20 ML VIAL ONE
[2024-01-02] MEDS ORDERED: LACTATED RINGER'S 1,000 ML IV SCH (07:00)
[2024-01-02] MEDS ORDERED: LIDOCAINE HCL 1% 5 ML SDV INJ ONE (07:00)
[2024-01-02] MEDS ORDERED: IBLOOD GLUCOSE TEST STRIP 1 EA TEST VI PRN (07:00)
[2024-01-02 07:06] VITALS: BP 149/44
[2024-01-02] MEDS ORDERED: TIZANIDINE HCL4 MG PO (07:09)
--- NOTE | 2024-01-02 07:35 | NUR ---
VISITED DURING SPIRITUAL CARE ROUNDS. PT SUPPORTED BY IN ROOM. BOTH DENIED IMMEDIATE NEEDS, NO OVERT SIGNS OF ANXIETY. ROD STRAIGHTENER PROVIDED SUPPORTIVE PRESENCE, HOSPITALITY, PRAYER, FACILITATED INTERACTION WITH THERAPY ANIMAL. PT DIANA LENTZ EXPRESSED GRATITUDE.
--- NOTE | 2024-01-02 09:08 | NUR ---
01/02/24 0908 Alex Ryan 0854: PT ARRIVED TO PACU VIA STRETCHER WITH ORAL AIRWAY IN PLACE ON 10L VIA MASK. 0859: ORAL AIRWAY REMOVED AND PATIENT TITRATED TO RA AT THIS TIME. 0905: PT AWAKE AND ASKING QUESTIONS. PT REMAINS ON RA AT THIS TIME. 0906: MD AT BEDSIDE AT THIS TIME.
[2024-01-02 09:16] VITALS: BP 106/48
--- NOTE | 2024-01-03 08:35 | OR ---
[facility] [address], [place] [address] Signed DATE OF OPERATION: 01/02/2024 SURGEON: Melissa Stone MD PREOPERATIVE DIAGNOSES: 1. Personal history of adenomatous colonic polyps in 2018 at the age of 62. 2. Anal sphincter nerve stimulator now turned off. 3. Internal hemorrhoids and associated skin tags. 4. History of constipation. POSTOPERATIVE DIAGNOSES: 1. Tortuous colon. 2. [id number] internal hemorrhoids and associated skin tags. 3. Lack of anal sphincter tone. PROCEDURE: Colonoscopy without biopsy. ESTIMATED BLOOD LOSS: None. INDICATIONS: Loki is a 68-year-old female who I met in 2007 when she was having trouble controlling gas and liquids. She also mentioned constipation. She was using digital disimpaction. She told me she had an episiotomy when her child was born. She tore the episiotomy apart at home and never went back to have it repaired. In 2007 her colonoscopy was unremarkable. We asked her to follow up in 10 years. She went down the [place], [place] to see Dr. Fatou Cota for evaluation. She ended up with an anal sphincter nerve stimulator as well as a sacral colpopexy. She said she was doing much better. At one point we turned the anal stimulator off because of her hip fracture. She did not feel like it made any difference in her sphincter function, so she left it turned off. She is quite confident the battery is probably at this point. When she came in the office on this occasion, she has similar GI complaints. I helped her in 2018 at the age of 62. At that time she had an adenomatous polyp removed and some internal hemorrhoids and skin tags. Therefore we asked her to stay on the five year plan. She told me she is now retired, feels much better. She has to use some hydrocodone and some cannabis on a regular basis because of her headaches. She has no family history of colon cancer or polyps. She has had a previous mandibular fracture, but she has good range of motion. She said the metformin is for weight loss, not for diabetes. She told me the gastric band is now deflated, but she does see Dr. Kitchen over in the [employer], [place] on a Electronically Signed By: MELISSA STONE MD 01/03/24 0835 PATIENT NAME: LOKI PINO OPERATIVE REPORT DATE OF : 59 REPORT #: [id number] PHYSICIAN: MELISSA STONE MD PCP: LIBIA IBRAHIM MD REPORT IS CONFIDENTIAL AND NOT TO BE RELEASED WITHOUT AUTHORIZATION [facility] [address], [place] [address] Signed regular basis. In the office I had given her a pamphlet on colonoscopy. We reviewed the nature of the test. There is risk including, but not limited to gas bloating, crampy abdominal pain, bleeding, perforation requiring surgery, and missed diagnosis. We also reviewed the written instructions for bowel prep line by line. It is the same bowel prep she took previously. We had reviewed her medications as well. We also reviewed the need for monitored anesthesia care given her need of hydrocodone and cannabis. She had expressed understanding and wished to proceed. She understands that an adult person has to take her home afterwards. She said that would likely be her . PROCEDURE IN DETAIL: Loki was taken into our endoscopy suite and placed in the left lateral decubitus position. She was given monitored anesthesia care, propofol infusion per our nurse licensing representative. A digital rectal exam was performed to make sure enough she has no sphincter tone whatsoever. In fact, she had leaked liquid particulate stool matter onto the bed. The adult colonoscope was introduced and advanced under direct visualization of camera. On this occasion it took a while to get around her rectosigmoid junction and up through the sigmoid colon and left colon. It is quite, I would say it is moderately tortuous. She also had some areas of liquid particulate stool matter that I had to suction out. She use Dulcolax tablets along with 1/2 gallon of polyethylene glycol. I think she could use a little more polyethylene glycol in the future. We used some abdominal compression and eventually made our way into the cecum itself. We could easily see the appendiceal orifice and ileocecal valve. The scope was then slowly withdrawn. We had taken several pictures throughout for photodocumentation. We did not see any polyps on this occasion. There were no diverticula. The rectum was unremarkable. Upon retroflexion of scope, she has minimal internal hemorrhoid columns with some skin tags. After this, the gas was suctioned out, colonoscope removed. Loki tolerated the procedure quite well. RECOMMENDATIONS: Loki will stay on the five year plan given her personal history of adenomatous polyps. She would probably take a little more polyethylene glycol in the future as mentioned above. It looks like she will need monitored anesthesia care as well. Melissa Stone MD ALB/MODL /[id number] Electronically Signed By: MELISSA STONE MD 01/03/24 0835 PATIENT NAME: LOKI PINO OPERATIVE REPORT DATE OF : 59 REPORT #: [id number] PHYSICIAN: MELISSA STONE MD PCP: LIBIA IBRAHIM MD REPORT IS CONFIDENTIAL AND NOT TO BE RELEASED WITHOUT AUTHORIZATION [facility] [address], [place] [address] Signed cc: Dr. Libia Stone MD Copies: MELISSA STONE MD ~ Electronically Signed By: MELISSA STONE MD 01/03/24 0835 PATIENT NAME: LOKI PINO OPERATIVE REPORT DATE OF : 59 REPORT #: [id number] PHYSICIAN: MELISSA STONE MD PCP: LIBIA IBRAHIM MD REPORT IS CONFIDENTIAL AND NOT TO BE RELEASED WITHOUT AUTHORIZATION
== END 2024-01-02 09:30 | disposition home or self-care (01) ==
LOC: DS 06:55
PROVIDERS: ATTEND Colon & Rectal Surgery
PROC: 0DJD8ZZ Inspection of Lower Intestinal Tract, Via Natural or Artificial Opening Endoscopic (ICD-10-PCS; principal; 2024-01-02 08:15)
DX: K64.8 Other hemorrhoids (principal); K63.89 Other specified diseases of intestine; R73.03 Prediabetes; K64.4 Residual hemorrhoidal skin tags; E55.9 Vitamin D deficiency, unspecified; G43.909 Migraine, unspecified, not intractable, without status migrainosus; M19.042 Primary osteoarthritis, left hand; M19.041 Primary osteoarthritis, right hand; Z86.0101 Personal history of adenomatous and serrated colon polyps; Z79.899 Other long term (current) drug therapy; Z88.0 Allergy status to penicillin; Z88.8 Allergy status to other drugs, medicaments and biological substances
CPT/HCPCS: 00811; J2704; J7121

== ENCOUNTER 2024-03-18 16:07 | Emergency (ER) | payer OTHER, MEDICARE ==
[~2024-03-18] VITALS: Ht 167.6 cm; Wt 83.9 kg
[~2024-03-18 16:07] MED LIST changes: -MIDAZOLAM HCL 5 MG/5 ML VIAL IV PRN; +TIZANIDINE HCL4 MG PO; -fentaNYL citrate 100 MCG/2 ML VIAL IV PRN; -propofoL 200 MG/20 ML VIAL ONE
[2024-03-18] MEDS ORDERED: CODEINE-GUAIFE120 ML PO (17:28)
[2024-03-18] MEDS ORDERED: VENTOLIN HFA18 GM INH (17:29)
[2024-03-18] MEDS ORDERED: IBUPROFEN 600 MG TAB PO ONE (17:45)
[2024-03-18] MEDS ORDERED: ONDANSETRON ODT4 MG PO (18:34)
[2024-03-18] MEDS ORDERED: HYDROCODON-ACE1 EA10 PO (18:34)
[2024-03-18 18:50] VITALS: BP 133/48
== END 2024-03-18 18:52 | disposition home or self-care (01) ==
LOC: ED 16:07
DX: S70.02XA Contusion of left hip, initial encounter (principal); S00.93XA Contusion of unspecified part of head, initial encounter; W01.190A Fall on same level from slipping, tripping and stumbling with subsequent striking against furniture, initial encounter; Z88.0 Allergy status to penicillin; Z88.5 Allergy status to narcotic agent; Z88.2 Allergy status to sulfonamides; Z88.8 Allergy status to other drugs, medicaments and biological substances; Z91.048 Other nonmedicinal substance allergy status; Z79.899 Other long term (current) drug therapy
CPT/HCPCS: 72192; 73700; 99283-25; A9270